=== PATIENT | female | born 1980 | race Caucasian/White ===

== ENCOUNTER 2021-03-01 22:03 | Emergency (ER) | payer OTHER, SELFPAY ==
[2021-03-01 22:12] VITALS: BP 183/116; PULSE 95; RESP 17; TEMP 36.6; O2SAT 98; BMI 43.4
[2021-03-01 22:16] VITALS: PULSE 84; RESP 18; O2SAT 92
--- NOTE | 2021-03-01 22:28 | ECG_ITS ---
[facility] Test Date: 2021-03-01 Pat Name: Karyna Gold Department: Room: Gender: Female [employer]ter: : 1980 Requested By: Brett Renae Order Number: [id number] Dylan MD: Jayesh Rangel M.D. Measurements Intervals [place] Rate: 86 P: 20 DC: 165 QRS: 7 QRSD: 88 T: 57 QT: 360 QTc: 433 Interpretive Statements SINUS RHYTHM WITH SINUS ARRHYTHMIA No previous ECG available for comparison Electronically Signed On 03-02-2021 22:14:44 CDT by Jayesh Rangel M.D. [email or web address] [facility] hospitalUASC PHYSICIANSway[email or web address]/store/[id number] f
--- NOTE | 2021-03-02 01:46 | W.ED.CHESTPA ---
HPI - Chest Pain General: Chief Complaint: Chest Pain Stated Complaint: CP Time Seen by Provider: 03/01/21 22:13 History of Present Illness: HPI narrative: 40-year-old female with a history of hypertension. She presents with an episode of chest pain that she says is resolved. She says she would like to go home now. She says she had an anxiety attack at home, and only agreed to come to the ER because her mother wanted her to. She states that she has children at home and needs to get back to them. MD complaint: chest pain Pertinent past history: other Onset (ago): minute(s) Timing of current episode: now resolved Prior episodes: No Onset: during rest Pain location: substernal Severity: severe Relieving factors: nothing Exacerbating factors: nothing Associated symptoms: Deny abdominal pain, diaphoresis, dyspnea, fever(s), nausea or palpitations Review of Systems Const: Denies: fever(s) or diaphoresis Card: Denies: palpitations Resp: Denies: dyspnea GI: Denies: abdominal pain or nausea Neuro: Denies: headache(s) or weakness in extremities PFSH ED PFSH: Medical History (Updated 03/01/21 @ 22:44 by Brett Jeffers DO) BRCA2 gene mutation positive Essential hypertension Gastro-esophageal reflux disease without esophagitis History of colon polyps Morbid (severe) obesity due to excess calories Obesity, morbid, BMI 40.0-49.9 Surgical History (Updated 12/19/20 @ 11:09 by EPHRAIM Rosa) History of reconstruction of both breasts Hx of section Hx of colonoscopy (~2016) Hx of endoscopy (~2016) Hx of hysterectomy Hx of tonsillectomy Hx of total mastectomy (~2013) Bilateral BRCA 2 gene [place], [place] Family History Mother Hypertension Diabetes Family/Other Cancer Lung, breast, ovarian, colon, brain, cervical, esophageal Other Stroke Social History Smoking and tobacco status: current every day smoker cigarettes Packs smoked per day: 0.5 [ Other cigarette details: smoked since age 11 ] and e-cigarettes E-Cigarette Details: with nicotine Second hand smoke exposure: No Smoking risk assessment/counseling performed?: No Alcohol intake: unknown Desire information about alcohol rehabilitation?: No Counseling given: No Desire information about substance/drug rehabilitation?: No Counseling given: No Adopted: No Caregiver/support person: No Lives independently: Yes Household members: children Housing: House Marital status: Number of children: 2 Current occupational status: employed Current occupation: [employer] History of recent travel: No Current gender identity: Female Physical Exam Const: GENERAL APPEARANCE: well developed ORIENTATION/CONSCIOUSNESS: Yes oriented to person, Yes oriented to place and Yes oriented to time HENMT: COMMON NORMALS: normocephalic, external ears normal and Normal external nose present HEAD & SCALP: normocephalic FACE & SINUS: normal facial exam NOSE: Normal external nose present and No nasal discharge present EXTERNAL EAR: Yes external ears normal Eye: COMMON NORMALS: Equal, round and reactive pupils present, EOMs intact bilaterally and conjunctivae normal EYELID: eyelids normal CONJUNCTIVA: Yes conjunctivae normal PUPIL: Yes Equal, round and reactive pupils present Neck/C-Spine: GENERAL: No tracheal deviation Chest: COMMONS NORMALS: normal inspection of the chest CHEST: No tenderness Resp: COMMON NORMALS: clear to auscultation bilaterally EFFORT & INSPECTION: No tachypneic, No respiratory distress, No retractions, No uses accessory muscles and No tracheal deviation AUSCULTATION: clear to auscultation bilaterally, no rhonchi, no wheezes and lung sounds not diminished Cardio: COMMON NORMALS: regular rate and regular rhythm RATE: regular rate RHYTHM: regular rhythm HEART SOUNDS: no murmurs PERIPHERAL PULSES: radial pulses present GI: INSPECTION: No abdominal distension AUSCULTATION: No Hyperactive bowel sounds present and No Hypoactive bowel sounds present PALPATION: No Guarding due to palpation present (GI) and No Rigid due to palpation PERCUSSION: no dullness to percussion and no tympanic to percussion Neuro: SENSORIUM/ORIENTATION: Yes oriented to person, Yes oriented to place and Yes oriented to time Psych: COMMON NORMALS: mental status grossly normal Skin: COMMON NORMALS: no rashes or lesions noted GENERAL SKIN EXAM: no rashes or lesions noted Course Vital Signs: Vital signs: Vital Signs Temperature 97.9 F 03/01/21 22:12 Pulse Rate 84 03/01/21 22:16 Respiratory Rate 18 03/01/21 22:16 Blood Pressure 183/116 03/01/21 22:12 Pulse Oximetry 92 03/01/21 22:16 MDM - Chest Pain MDM Narrative: Medical decision making narrative: Patient would like to go home. She is awake, alert, and oriented to situation. She understands the risks. She signed an AMA form. Discharge Plan Discharge Patient Disposition: Left Against Medical Advice Clinical Impression: Chest pain Qualifiers: Chest pain type: unspecified Qualified Code(s): R07.9 - Chest pain, unspecified Hypertension Qualifiers: Hypertension type: unspecified Qualified Code(s): I10 - Essential (primary) hypertension Condition: Stable Prescriptions: No Action metoprolol succinate [Toprol XL] 50 mg tablet extended release 24 hr 50 mg PO DAILY Qty: 30 RF: 0 Referrals: Cortes Sanderson FNP-C [Primary Care Provider] - Activity Restrictions/Additional Instructions: Please return to the emergency department for return of chest pain, shortness of breath, or any other concerning symptoms. Coding Level of Care Code ED Electrical Appliance Repairer for Briana Gregg
== END 2021-03-01 22:30 | disposition left against medical advice (07) ==
PROVIDERS: Emergency Provider Emergency Medicine; PCP Nurse Practitioner
DX: R07.9 Chest pain, unspecified (principal); I10 Essential (primary) hypertension; F17.210 Nicotine dependence, cigarettes, uncomplicated; E66.9 Obesity, unspecified; Z68.41 Body mass index [BMI] 40.0-44.9, adult
CPT/HCPCS: 93005

== ENCOUNTER → 2021-03-06 12:22 | Outpatient (BNVA) | payer OTHER, SELFPAY | PROVIDERS: PCP Nurse Practitioner; Visit Provider Nurse Practitioner | DX: R00.0 Tachycardia, unspecified (principal); I10 Essential (primary) hypertension; Z79.899 Other long term (current) drug therapy | CPT/HCPCS: 81000 ==

== ENCOUNTER → 2021-03-18 11:55 | Outpatient (BNVA) | payer SELFPAY | PROVIDERS: PCP Nurse Practitioner; Visit Provider Dermatology | DX: Z01.89 Encounter for other specified special examinations (principal) ==

== ENCOUNTER → 2021-10-10 11:06 | Outpatient (BNVA) | payer OTHER, SELFPAY | PROVIDERS: PCP Nurse Practitioner; Visit Provider Nurse Practitioner Family | DX: Z20.822 Contact with and (suspected) exposure to COVID-19 (principal); R05.9 Cough, unspecified; R50.9 Fever, unspecified | CPT/HCPCS: 87635 ==